=== PATIENT | male | born 1995 | race Caucasian/White ===

== ENCOUNTER 2016-03-19 08:10 | Emergency (ER) | payer OTHER ==
[2016-03-19 08:17] VITALS: BP 115/57; PULSE 115; TEMP 100.8; BMI 26.3
--- NOTE | 2016-03-19 09:03 | PDOC ---
History of Present Illness - General Chief Complaint: Cold Symptoms Stated Complaint: FEVER, CHILLS, HEADACHE Time Seen by Provider: 03/19/16 08:31 History Source: Patient Exam Limitations: No Limitations - History of Present Illness Initial Comments: 03/19/16 09:05 My chief complaint: Nasal congestion, dry cough, headache body aches and sore throat 03/19/16 09:05 History of present illness: Patient is a 20-year-old male with a history of asthma here today with his mother due to sudden onset of fever as high as 101 last night with dry cough, nasal congestion, headache and body aches along with a sore throat. Patient works in a [employer] pallor has contact with public. Patient is any wheezing or any shortness of breath or difficulty swallowing. Patient does not have a headache presently. Patient last took acetaminophen at 7 AM had a temp of 104. Patient did not have influenza vaccine. Patient has had no recent travel. Patient is up-to-date with immunizations except for the influenza vaccine. 03/19/16 09:07 Timing/Duration: getting worse Severity: moderate Associated Symptoms: reports: cough, fever/chills, headaches, other Past History - Past Medical History Allergies/Adverse Reactions: Allergies Allergy/AdvReac Type Severity Reaction Status Date / Time No Known Allergies Allergy Verified 03/19/16 08:17 Home Medications: Ambulatory Orders Oseltamivir Phosphate [Tamiflu -] 75 mg PO BID #10 capsule 03/19/16 Asthma: Yes - Immunization History Immunization Up to Date: Yes - Psycho/Social/Smoking Cessation Hx Anxiety: No Suicidal Ideation: No Smoking Status: No Smoking History: Never smoked Number of Cigarettes Smoked Daily: 0 Hx Alcohol Use: No Drug/Substance Use Hx: No Substance Use Type: None Review of Systems - Review of Systems Able to Perform ROS?: Yes Constitutional: Yes: Fever, Loss of Appetite HEENTM: Yes: Nose Congestion, Throat Pain Respiratory: Yes: Cough. No: Shortness of Breath, SOB with Exertion, SOB at Rest, Stridor, Wheezing, Productive cough Cardiac (ROS): No: Symptoms Reported ABD/GI: No: Symptoms Reported : No: Symptoms Reported Musculoskeletal: No: Symptoms Reported Integumentary: No: Symptoms Reported Neurological: Yes: Headache (earlier this am) *Physical Exam - Vital Signs Last Vital Signs Temp Pulse Resp BP Pulse Ox 100.8 F H 115 H 20 115/57 96 03/19/16 08:14 03/19/16 08:14 03/19/16 08:14 03/19/16 08:14 03/19/16 08:14 - Physical Exam General Appearance: Yes: Appropriately Dressed HEENT: positive: TMs Normal, Pharyngeal Erythema, Tonsillar Erythema (with no uvular deviation ), Nasal Congestion, Rhinorrhea. negative: Sinus Tenderness Neck: negative: Lymphadenopathy (R), Lymphadenopathy (L) Respiratory/Chest: positive: Lungs Clear, Normal Breath Sounds. negative: Chest Tender, Respiratory Distress, Accessory Muscle Use, Labored Respiration, Rapid RR Cardiovascular: positive: Regular Rhythm, Regular Rate, S1, S2 Integumentary: positive: Normal Color Neurologic: positive: Alert, Normal Response, Responsive Medical Decision Making - Medical Decision Making 03/19/16 09:07 Patient is a 20-year-old male with a history of asthma here today with his mother due to sudden onset of fever as high as 101 last night with dry cough, nasal congestion, headache and body aches along with a sore throat. Patient works in a [employer] has contact with public. Patient is any wheezing or any shortness of breath or difficulty swallowing. Patient does not have a headache presently. Patient last took acetaminophen at 7 AM had a temp of 104. Patient did not have influenza vaccine. Patient has had no recent travel. Patient is up- to-date with immunizations except for the influenza vaccine. Rule out influenza A or B Rule out strep throat Plan: Throat C&S rapid negative Influenza A and B rapid + influenza A 03/19/16 09:09 03/19/16 10:01 03/19/16 10:09 Tamiflu 75 mg bid for 5 days *DC/Admit/Observation/Transfer Diagnosis at time of Disposition: Influenza A - Discharge Dispostion Disposition: HOME Condition at time of disposition: Stable - Prescriptions Prescriptions: Oseltamivir Phosphate [Tamiflu -] 75 mg PO BID #10 capsule - Patient Instructions Additional Instructions: Rest and drink a lot a fluids Take ibuprofen or acetaminophen as needed as directed by washing machine repairer for fever or body aches Return to emergency room if any difficulty breathing or any new symptoms develop Follow-up with your primary care provider within a few days Patient voiced understanding of discharge instructions and all questions are answered - Post Discharge Activity Work/School Note: Back to Work
== END 2016-03-19 10:16 | disposition home or self-care (01) ==
LOC: JERFT 08:10
DX: J09.X2 Influenza due to identified novel influenza A virus with other respiratory manifestations (principal); J45.909 Unspecified asthma, uncomplicated
CPT/HCPCS: 87070; 87430; 87804; 99281-25

== ENCOUNTER 2017-02-23 13:54 | Emergency (ER) | payer OTHER ==
[2017-02-23 14:12] VITALS: BP 111/75; PULSE 81; TEMP 97.6; BMI 28.1
--- NOTE | 2017-02-23 14:16 | PDOC ---
History of Present Illness - General History Source: Patient Exam Limitations: No Limitations - History of Present Illness Initial Comments: 02/23/17 16:01 Patient is a 21 year old male with no significant past medical history who presents to the ED with complaints of nausea/vomiting that began this morning. Patient reports experiencing multiple episodes of vomiting suddenly since this morning. He reports experiencing profuse sweating and head pain secondary to vomiting. Patient states he has been experiencing nasal congestion for the last 2 days but is unsure if it is related to his current symptoms. He reports vomit is currently what he has been eating throughout the day. Denies SOB, chest pain. Denies contact with sick individuals, out of state travelling. Denies abdominal pain, dysuria, hematuria, constipation, diarrhea. Denies change in appetite, change in vision. Allergies: None Social history: Lives with mother. No alcohol. No illicit drugs. No smoking. Surgical history: None PMD: None <Hugo Chaudhary - Last Filed: 02/23/17 16:02> <Lacie Barnes - Last Filed: 02/23/17 16:07> - General Chief Complaint: Nausea/Vomiting Stated Complaint: VOMITTING, DRY HEAVES, NAUSEA Time Seen by Provider: 02/23/17 14:15 Past History <Hugo Chaudhary - Last Filed: 02/23/17 16:02> - Past Medical History Asthma: Yes COPD: No - Immunization History Immunization Up to Date: Yes - Suicide/Smoking/Psychosocial Hx Smoking Status: No Smoking History: Never smoked Have you smoked in the past 12 months: No Number of Cigarettes Smoked Daily: 0 Hx Alcohol Use: (social) Drug/Substance Use Hx: No Substance Use Type: None <Lacie Barnes - Last Filed: 02/23/17 16:07> - Past Medical History Allergies/Adverse Reactions: Allergies Allergy/AdvReac Type Severity Reaction Status Date / Time No Known Allergies Allergy Verified 02/23/17 14:08 Home Medications: Ambulatory Orders Albuterol Sulfate Inhaler - [Ventolin Hfa Inhaler -] 1 - 2 inh PO QID PRN Review of Systems - Review of Systems Able to Perform ROS?: Yes Comments:: 02/23/17 16:01 GENERAL/CONSTITUTIONAL: No fever or chills. No weakness. HEAD, EYES, EARS, NOSE AND THROAT: +Nasal congestion. No change in vision. No ear pain or discharge. No sore throat. CARDIOVASCULAR: No chest pain or shortness of breath. RESPIRATORY: No cough, wheezing, or hemoptysis. GASTROINTESTINAL: +Nausea. +Vomiting. No diarrhea or constipation. GENITOURINARY: No dysuria, frequency, or change in urination. MUSCULOSKELETAL: No joint or muscle swelling or pain. No neck or back pain. SKIN: No rash NEUROLOGIC: No headache, vertigo, loss of consciousness, or change in strength/ sensation. ENDOCRINE: No increased thirst. No abnormal weight change. HEMATOLOGIC/LYMPHATIC: No anemia, easy bleeding, or history of blood clots. ALLERGIC/IMMUNOLOGIC: No hives or skin allergy. All Other Systems: Reviewed and Negative <Hugo Chaudhary - Last Filed: 02/23/17 16:02> *Physical Exam - Vital Signs Last Vital Signs Temp Pulse Resp BP Pulse Ox 97.6 F 81 18 111/75 98 02/23/17 13:55 02/23/17 13:55 02/23/17 13:55 02/23/17 13:55 02/23/17 13:55 - Physical Exam Comments: 02/23/17 16:02 GENERAL: +Actively vomiting when walked in. Awake, alert, and fully oriented, in no acute distress HEAD: No signs of trauma EYES: PERRLA, EOMI, sclera anicteric, conjunctiva clear ENT: Auricles normal inspection, hearing grossly normal, nares patent, oropharynx clear without exudates. Moist mucosa NECK: Normal ROM, supple, no lymphadenopathy, JVD, or masses LUNGS: Breath sounds equal, clear to auscultation bilaterally. No wheezes, and no crackles HEART: Regular rate and rhythm, normal S1 and S2, no murmurs, rubs or gallops ABDOMEN: Soft, nontender, normoactive bowel sounds. No guarding, no rebound. No masses EXTREMITIES: Normal range of motion, no edema. No clubbing or cyanosis. No cords, erythema, or tenderness NEUROLOGICAL: Cranial nerves II through XII grossly intact. Normal speech, normal gait SKIN: Warm, Dry, normal turgor, no rashes or lesions noted. <Hugo Chaudhary - Last Filed: 02/23/17 16:02> - Vital Signs Last Vital Signs Temp Pulse Resp BP Pulse Ox 97.6 F 81 18 111/75 98 02/23/17 13:55 02/23/17 13:55 02/23/17 13:55 02/23/17 13:55 02/23/17 13:55 <Lacie Barnes - Last Filed: 02/23/17 16:07> ED Treatment Course - LABORATORY CBC & Chemistry Diagram: 02/23/17 14:25 02/23/17 14:25 - ADDITIONAL ORDERS Additional order review: Laboratory Results 02/23/17 14:25 Sodium 138 Potassium 4.6 D Chloride 102 Carbon Dioxide 24 Anion Gap 12 BUN 12 Creatinine 0.9 Creat Clearance w eGFR > 60 Random Glucose 112 H Calcium 10.1 Total Bilirubin 1.2 H AST 32 ALT 13 Alkaline Phosphatase 58 Total Protein 8.0 Albumin 4.9 02/23/17 14:25 RBC 5.95 H MCV 89.1 MCHC 33.8 RDW 12.1 MPV 9.8 Neutrophils % 86.3 H Lymphocytes % 9.1 D Monocytes % 3.7 L Eosinophils % 0.7 Basophils % 0.2 - Medications Given in the ED: ED Medications Discontinued Medications Generic Name Dose Route Start Last Admin Trade Name Freq PRN Reason Stop Dose Admin Sodium Chloride 1,000 mls @ 1,000 mls/hr 02/23/17 14:25 02/23/17 14:33 Normal Saline - IV 02/23/17 15:24 1,000 mls/hr ASDIR STA Administration Ondansetron HCl 4 mg 02/23/17 14:24 02/23/17 14:36 Zofran Injection IVPUSH 02/23/17 14:25 4 mg ONCE ONE Administration <Hugo Chaudhary - Last Filed: 02/23/17 16:02> - LABORATORY CBC & Chemistry Diagram: 02/23/17 14:25 02/23/17 14:25 <Lacie Barnes - Last Filed: 02/23/17 16:07> Medical Decision Making - Medical Decision Making 02/23/17 16:03 Pt presents to the ED complaining of nausea and vomiting with out abdominal pain , consistent with gastroenteritis. LAbs are within normal limits. Patient feels improved after IV hydration and nausea control and is tolerating PO and asking to go home. Will discharge home. <Lacie Barnes - Last Filed: 02/23/17 16:07> *DC/Admit/Observation/Transfer - Attestations Scribe Attestion: 02/23/17 16:02 Documentation prepared by Hugo Chaudhary, acting as remote medical coder for Lacie Barnes MD, /DO. <Hugo Chaudhary - Last Filed: 02/23/17 16:02> - Discharge Dispostion Admit: No <Lacie Barnes - Last Filed: 02/23/17 16:07> Diagnosis at time of Disposition: Nausea and vomiting Qualifiers: Vomiting type: unspecified Vomiting Intractability: non-intractable Qualified Code(s): R11.2 - Nausea with vomiting, unspecified - Discharge Dispostion Disposition: HOME Condition at time of disposition: Good - Patient Instructions Printed Discharge Instructions: DI for Vomiting -- Adult Additional Instructions: return to the ED for severe abdominal pain, persistent nausea and vomiting unable to keep anything down, other new or worsening symptoms. - Post Discharge Activity Forms/Work/School Notes: Back to Work
[2017-02-23] MEDS ORDERED: ONDANSETRON 4 MG/2 ML VIAL IVPUSH ONE (14:24)
[2017-02-23] MEDS ORDERED: SODIUM CHLORIDE 1,000 ML IV STA (14:25)
[2017-02-23] MEDS ORDERED: ONDANSETRON 4 MG/2 ML VIAL ONE (14:35)
[2017-02-23 14:59] LABS: BASO % 0.2 % (0-2.0); EOS % 0.7 % (0-4.5); HEMOGLOBIN 17.9 GM/dl (11.7-16.9); LYMPH % 9.1 % (8-40); MCH 30.1 pg (25.7-33.7); MCHC 33.8 g/dl (32.0-35.9); MEAN CELL VOLUME 89.1 fl (80-96); MEAN PLT VOLUME 9.8 fl (7.5-11.1); MONO % 3.7 % (3.8-10.2); NEUT % 86.3 % (42.8-82.8); PLATELET COUNT 213 K/MM3 (134-434); RBC 5.95 M/mm3 (4.00-5.60); RDW 12.1 % (11.9-15.9); WHITE BLOOD COUNT 9.2 K/mm3 (4.0-10.8)
[2017-02-23 15:11] LABS: ALBUMIN 4.9 g/dl (3.5-5.0); ALK PHOS 58 U/L (32-92); ANION GAP 12 (8-16); BILIRUBIN,TOTAL 1.2 mg/dl (0.2-1.0); BLOOD UREA NITROGEN 12 mg/dl (7-18); CALCIUM 10.1 mg/dl (8.4-10.2); CHLORIDE 102 mmol/L (98-107); CO2 24 mmol/L (22-28); CREATININE 0.9 mg/dl (0.6-1.3); GLUCOSE,RANDOM 112 mg/dl (74-106); POTASSIUM 4.6 mmol/L (3.5-5.1); SGOT/AST 32 U/L (10-42); SGPT/ALT 13 U/L (10-40); SODIUM 138 mmol/L (136-145)
== END 2017-02-23 16:53 | disposition home or self-care (01) ==
LOC: FER 13:54
PROC: 3E033GC Introduction of Other Therapeutic Substance into Peripheral Vein, Percutaneous Approach (ICD-10-PCS; principal; 2017-02-23)
PROC: 3E0337Z Introduction of Electrolytic and Water Balance Substance into Peripheral Vein, Percutaneous Approach (ICD-10-PCS; 2017-02-23)
DX: R11.2 Nausea with vomiting, unspecified (principal)
CPT/HCPCS: 36415; 80053; 85025; 99283-25

== ENCOUNTER 2017-12-30 18:25 | Emergency (ER) | payer OTHER ==
[2017-12-30 18:30] VITALS: BP 140/72; PULSE 82; TEMP 98.6; BMI 27.3
[2017-12-30] MEDS ORDERED: ACETAMINOPHEN 500 MG TABLET (FP) PO ONE (18:48)
--- NOTE | 2017-12-30 18:48 | PDOC ---
History of Present Illness - General Chief Complaint: Headache Stated Complaint: headache x1mnth Time Seen by Provider: 12/30/17 18:43 History Source: Patient Exam Limitations: No Limitations - History of Present Illness Initial Comments: 12/30/17 18:43 Patient is a 22M with history of asthma coming in today for a headache that is intermittent in nature for the past month. He states that he is coming in today because he wants to be checked out. Patient states that the headache is located along his right adventist radiating to the right aspect of his neck and shoulder. Denies morning headaches, sudden onset, fever, chills, family history of connective tissue disease, sensory deficits. He states that the headache was behind his eye once. Denies changes in vision, tearing, and history of migraines. Took 400mg of motrin today. Past History - Past Medical History Allergies/Adverse Reactions: Allergies Allergy/AdvReac Type Severity Reaction Status Date / Time No Known Allergies Allergy Verified 12/30/17 18:25 Home Medications: Ambulatory Orders Albuterol Sulfate Inhaler - [Ventolin Hfa Inhaler -] 1 - 2 inh PO QID PRN Ibuprofen [Advil -] 400 mg PO PRN PRN 12/30/17 Asthma: Yes COPD: No - Immunization History Immunization Up to Date: Yes - Suicide/Smoking/Psychosocial Hx Smoking Status: No Smoking History: Never smoked Have you smoked in the past 12 months: No Number of Cigarettes Smoked Daily: 0 Hx Alcohol Use: No Drug/Substance Use Hx: No Substance Use Type: None Review of Systems - Review of Systems Comments:: 12/30/17 18:49 GENERAL/CONSTITUTIONAL: No fever or chills. No weakness. HEAD, EYES, EARS, NOSE AND THROAT: No change in vision. No ear pain or discharge. No sore throat. CARDIOVASCULAR: No chest pain or shortness of breath RESPIRATORY: No cough, wheezing, or hemoptysis. GASTROINTESTINAL: No nausea, vomiting, diarrhea or constipation. GENITOURINARY: No dysuria, frequency, or change in urination. MUSCULOSKELETAL: No joint or muscle swelling or pain. No neck or back pain. SKIN: No rash NEUROLOGIC: +headache, no vertigo, loss of consciousness, or change in strength/ sensation. ENDOCRINE: No increased thirst. No abnormal weight change HEMATOLOGIC/LYMPHATIC: No anemia, easy bleeding, or history of blood clots. ALLERGIC/IMMUNOLOGIC: No hives or skin allergy. *Physical Exam - Vital Signs Last Vital Signs Temp Pulse Resp BP Pulse Ox 98.6 F 82 15 140/72 100 12/30/17 18:25 12/30/17 18:25 12/30/17 18:25 12/30/17 18:25 12/30/17 18:25 - Physical Exam Comments: 12/30/17 18:49 GENERAL: Awake, alert, and fully oriented, in no acute distress HEAD: No signs of trauma, normocephalic, atraumatic EYES: PERRLA, EOMI, sclera anicteric, conjunctiva clear ENT: Auricles normal inspection, hearing grossly normal, nares patent, oropharynx clear without exudates. Moist mucosa. Clear TMs. NECK: Normal ROM, supple, no lymphadenopathy, JVD, or masses LUNGS: No distress, speaks full sentences, clear to auscultation bilaterally HEART: Regular rate and rhythm, normal S1 and S2, no murmurs, rubs or gallops, peripheral pulses normal and equal bilaterally. ABDOMEN: Soft, nontender, normoactive bowel sounds. No guarding, no rebound. No masses EXTREMITIES: Normal inspection, Normal range of motion, no edema. No clubbing or cyanosis. NEUROLOGICAL: Cranial nerves II through XII grossly intact. Normal speech, normal gait, no focal sensorimotor deficits SKIN: Warm, Dry, normal turgor, no rashes or lesions noted. Medical Decision Making - Medical Decision Making 12/30/17 18:50 Patient is 22M with history of asthma here today with headache. Vitals normal and stable. No red flags on history or exam that suggest need for head CT. Given headache diary and neuro follow up. Instructed to take tylenol and motrin for pain as necessary. Given return precautions. *DC/Admit/Observation/Transfer Diagnosis at time of Disposition: Headache - Discharge Dispostion Disposition: HOME Condition at time of disposition: Good Decision to Admit order: No - Referrals Referrals: Elmer Romero DO [Staff Physician] - - Patient Instructions Printed Discharge Instructions: DI for Headache Additional Instructions: Please use the headache diary to keep track of your headaches. Please return to the ED if you develop any new, worsening or concerning symptoms , especially fever and increasing pain. Please follow up with neurology referral in your paperwork. - Post Discharge Activity
[2017-12-30] MEDS ORDERED: ACETAMINOPHEN 325 MG TABLET (FP) ONE (18:49)
--- NOTE | 2017-12-30 18:53 | PDOC ---
Attending Attestation - Resident Resident Name: WanradhaGil - ED Attending Attestation I have performed the following: I have examined & evaluated the patient, The case was reviewed & discussed with the resident, I agree w/resident's findings & plan, Exceptions are as noted - HPI HPI: 12/30/17 18:48 Patient with recurring headaches for the last month, primarily right occipital, seeming to originate in the area of the right trapezius and scapula. No associated nausea, photophobia, tearing, visual or focal neurologic symptoms. They did not interfere with his daily activities. They are not worsening. - Physicial Exam PE: 12/30/17 18:49 Vital signs normal PERRLA 4 mm, fundi benign with sharp disc margins and good central venous pulsations visualized. ENT clear Neck supple without bruit mass or nodes Chest clear CV regular without murmur rub or gallop Abdomen benign Neurological C2 to 12 intact. Strength full and symmetric. No focal sensory or motor deficits. Gait stable and unimpaired - Medical Decision Making 12/30/17 18:50 Impression: No sign of central nervous system disease. The patient acknowledges that weight lifting may be a factor in bringing on headaches, especially when the right shoulder is unaffected. His mother has migraines, and in addition this may be a migraine variant or cluster type headache. Plan: Symptomatic treatment. Avoid aggravating factors. See neurologist for further diagnosis and treatment in a timely fashion. Patient understands and agrees. Fully ambulatory in no significant pain or other distress upon discharge to follow-up as directed
== END 2017-12-30 18:56 | disposition home or self-care (01) ==
LOC: FER 18:25
DX: R51 Headache (principal); J45.909 Unspecified asthma, uncomplicated
CPT/HCPCS: 99281-25